=== PATIENT | male | born 1995 | race African-American/Black ===

== ENCOUNTER → 2016-07-21 19:22 | Emergency (ER) | payer OTHER ==
[2016-07-21 19:31] VITALS: BP 132/76
== END | disposition left against medical advice (07) ==
LOC: ED 19:22
DX: Z00.8 Encounter for other general examination (principal); Z53.21 Procedure and treatment not carried out due to patient leaving prior to being seen by health care provider

== ENCOUNTER 2016-07-21 20:05 | Inpatient (IN) | payer OTHER ==
--- NOTE | 2016-07-21 20:41 | ED ---
Psychiatric Complaint - HPI Summary HPI Summary: 21M presents for mental health evaluation. He has not been taking his medication for a couple months. He states he is here before things get worst. He denies any SI/HI. He denies any drug or ETOH use. He was last admitted here many months ago. He states his medication are not helping. He does not know his family history. He states he has a history of depression but is not very forthcoming on his mental history. - History Of Current Complaint Chief Complaint: EDMentalHealth Time Seen by Provider: 07/21/16 20:26 - Allergies/Home Medications Allergies/Adverse Reactions: Allergies Allergy/AdvReac Type Severity Reaction Status Date / Time No Known Allergies Allergy Verified 10/27/15 23:21 PMH/Surg Hx/FS Hx/Imm Hx Endocrine/Hematology History: Denies: Hx Diabetes, Hx Thyroid Disease Cardiovascular History: Denies: Hx Hypertension Respiratory History: Denies: Hx Asthma, Hx Chronic Obstructive Pulmonary Disease (COPD) GI History: Denies: Hx Ulcer Musculoskeletal History: Denies: Hx Rheumatoid Arthritis, Hx Osteoporosis Psychiatric History: Reports: Hx Anxiety, Hx Depression Denies: Hx Eating Disorder - Surgical History Surgery Procedure, Year, and Place: bilateral foot surgery while in high school Infectious Disease History: Denies: Hx Clostridium Difficile, Hx Hepatitis, Hx Human Immunodeficiency Virus (HIV), Hx of Known/Suspected MRSA, Hx Shingles, Hx Tuberculosis, History Other Infectious Disease, Traveled Outside the [place] in Last 30 Days - Family History Known Family History: Positive: Diabetes - Social History Alcohol Use: says has a couple of drinks ETOH every few days Hx Substance Use: No Substance Use Type: Reports: None, Marijuana Hx Tobacco Use: Yes Smoking Status (MU): Current Some Day Smoker Type: Cigars Review of Systems Negative: Fever Negative: Cough Negative: Abdominal Pain Positive: Depressed All Other Systems Reviewed And Are Negative: Yes Physical Exam Triage Information Reviewed: Yes Vital Signs On Initial Exam: Initial Vitals Temp Pulse Resp BP Pulse Ox 97.7 F 102 20 136/84 100 07/21/16 20:19 07/21/16 20:19 07/21/16 20:19 07/21/16 20:19 07/21/16 20:19 Vital Signs Reviewed: Yes Appearance: Positive: Well-Appearing Skin: Positive: Warm, Dry Head/Face: Positive: Normal Head/Face Inspection Eyes: Positive: Normal, Conjunctiva Clear ENT: Positive: Normal ENT inspection, Pharynx normal, TMs normal Respiratory/Lung Sounds: Positive: Clear to Auscultation, Breath Sounds Present Cardiovascular: Positive: Normal, RRR Diagnostics - Vital Signs Vital Signs Temp Pulse Resp BP Pulse Ox 07/21/16 20:19 97.7 F 102 20 136/84 100 - Laboratory Result Diagrams: 07/21/16 21:04 07/21/16 21:04 Lab Statement: Any lab studies that have been ordered have been reviewed, and results considered in the medical decision making process. Course/Dx - Course Course Of Treatment: 21M presents for MHE. has history of depression. denies any SI/HI. patient was anxious that everything was taking a long time to see MHE and requested to leave. there was no reason to keep patient here as came voluntarily and expressed no desire to hurt himself or others. was seen by MHE and felt that needed to be admitted but patient eloped before could be admitted. MHE filled about involuntary admission papers and got the police involved and brought the patient back to be admitted - Differential Dx/Clinical Impression Differential Diagnosis/HQI/PQRI: Positive: Anxiety, Depression, Suicidal Ideation Provider Diagnosis: Persistent mood [affective] disorder, unspecified Discharge - Discharge Plan Condition: Stable Disposition: [place]IATR[place] [place]
[2016-07-21 21:13] LABS: Hematocrit 46 % (42-52); Hemoglobin 15.7 g/dl (14.0-18.0); Mean Corpuscular HGB Conc 34 g/dl (31-36); Mean Corpuscular Hemoglobin 30 pg (27-31); Mean Corpuscular Volume 87 fL (80-94); Mean Platelet Volume 9 um3 (7.4-10.4); Red Blood Count 5.32 10^6/ul (4.0-5.4); Red Cell Distribution Width 13 % (10.5-15); White Blood Count 6.7 10^3/ul (3.5-10.8)
[2016-07-21 21:28] LABS: ALT 21 U/L (7-52); AST 21 U/L (13-39); Albumin 4.8 g/dL (3.2-5.2); Alkaline Phosphatase 44 U/L (34-104); Anion Gap 6 mmol/L (2-11); BUN/Creatinine Ratio 8.2 (8-20); Blood Urea Nitrogen 12 mg/dL (6-24); CO2 Carbon Dioxide 29 mmol/L (22-32); Calcium 9.8 mg/dL (8.6-10.3); Chloride 103 mmol/L (101-111); EGFR African American 76.3 (>60); EGFR Non-African American 59.4 (>60); Globulin 2.9 g/dL (2-4); Glucose 79 mg/dL (70-100); Potassium 3.6 mmol/L (3.5-5.0); Sodium 138 mmol/L (133-145); Total Protein 7.7 g/dL (6.4-8.9)
[2016-07-21 22:08] LABS: Acetaminophen < 15 mcg/mL; Alcohol < 10 mg/dL (<10); Salicylate < 2.50 mg/dL (<30)
[2016-07-22] MEDS ORDERED: diPHENhydraMINE IV* 50 MG/ML 1 ml VIAL (BENADRYL) IM ONE (00:16)
[2016-07-22] MEDS ORDERED: Haloperidol INJ IV/IM* 5 MG/ML AMP IM ONE (00:16)
[2016-07-22] MEDS ORDERED: LORazepam INJ* 2 MG/ML 1 ML VIAL IM ONE (00:16)
[2016-07-22] MEDS ORDERED: Nicotine GUM* 2 MG PO PRN (01:54)
[2016-07-22] MEDS ORDERED: Mouth Piece, Nicotine* 1 EACH CARTRIDGE INH SCH (01:54)
[2016-07-22] MEDS ORDERED: Nicotine Inhaler* 10 MG AMP INH PRN (01:54)
[2016-07-22] MEDS ORDERED: Acetaminophen TAB* 325 MG PO PRN (01:54)
[2016-07-22] MEDS ORDERED: Al Hydrox/Mg Hydrox/Simet LIQ* 30 ML UDC PO PRN (01:54)
[2016-07-22] MEDS ORDERED: OLANzapine TAB* 5 MG PO PRN (01:55)
[2016-07-22] MEDS ORDERED: OLANzapine TAB* 5 MG PO SCH (09:00)
[2016-07-22] MEDS ORDERED: Sertraline* 100 MG TAB PO SCH (09:00)
[2016-07-22] MEDS: Vitamin THERAPEUTIC TAB PO SCH (09:10)
--- NOTE | 2016-07-22 14:29 | ADMNOTE ---
Identification - Identify Employment Status: Unemployed Hx Psychiatric Hospitalization: Yes - 1st inpatient hospitalization 10/[address] [facility]. Arrived to Hospital Via: Ambulatory - Patient walked from [facility] History - Objective HPI: 21yo male patient presents to [facility] ED, having walked from his alf alma, reporting worsening depression, anger, and anxiety associated with assaultive ideations. Patient's last psych admission was to [facility] in 10/2015. He was discharged on Zyprexa and Zoloft. Patient reports med non-compliance reporting he took the meds for ~2 weeks but stopped them due to nausea and vomiting s/e's. On this admission, patient requests med modification and endorses currently feeling "out of control". He reports frequent unmanageable angry when he feels judged or thought of as less than. He reports this anger ppt's AI(assaultive ideations). Patient denies hx of DV(domestic violence ) or assault. Patient hopes to start meds to decrease his thoughts to hurt others. Patient denies SI/HI and denies hx of suicide attempt and hx of self injurious behavior. Patient reports his symptoms began to intensify after being jailed for 1 month associated with an arrest for DWI in 08/2015 and later that month an arrest for fleeing police. Patient reports after the DWI arrest he felt he was being harassed by police, being frequently pulled over. He reported fleeing police during an attempted traffice stop. Patient reports after being released from custodial he became socially withdrawn and went weeks without leaving his home. During his 2015 hospitalization he displayed catatonic features, mutism, staring, being withdrawn and immobile to the point of going days between meals and fluid intake. Patient endorses ongoing depressive symptoms including insomnia, social isolation, irritability, feelings of hopelessness, helplessness, and worthlessness, as well as decreased interests especially in hygeine, poor energy and motivation. Patient also reports episodes where he experiences poor cognition, reporting irrational thinking. Patient points to his walking to the ED instead of getting a ride by EMS, police, or staff. Patient also reports walking off his job of 1 year recently due to anxiety and misinterpreting statements and gestures of co-workers. He endorsed assuming malicious intent without evidence. Patient also identifies losing his apartment, then having to live with his mother, then moving into a living with 14 other guys and worsening his anxiety. Patient reports perseverating / ruminating on every encounter there. Past Psych Hx: Inpt - 2nd, both at [facility]. last 10/2015 Outpt - [facility], sees Dr. Grubbs Psychotropic med hx - patient reports no current med Rx, hx of Zyprexa and Zoloft but self D/C'd due to GI s/e's Suicide attempt Hx SIB Hx: Patient denies hx of suicide attempt and hx of SIB Substance Hx: Patient reports moderate Cannabis and Alcohol use d/o symptoms Trauma Hx: Patient denies hx of childhood physical, emotional, and sexual abuse PMHx: ------ NONE Allergies: --------- NKDA Family Hx: --------- -Patient reports maternal cousin dx with Schizophrenia -Patient reports mom dx with depression -Patient denies family hx of suicide attempt -Patient denies family hx of SERGIO issues Social Hx: -Patient born in [place], [place] -Raised by mom, close -Dad in [facility], close -2 siblings, brothers, close -[employer] - HS diploma -single, never , no children -currently unemployed -Longest held job - 1 year PHYSICAL EXAM: GEN - medium build, in NAD HEENT - Head AT/NC, EOEMI, Uvula midline, conjunctivae clear NECK - supple, no JVD, no LAD CARDIAC - S1/S2, RRR LUNGS - CTA ABDOMEN - soft, non tender, BSx4 MUSCULOSKELETAL - 5/5 muscle strength bilateral upper and lower extremities SKIN - no lesions, intact NEURO - CN 2-12 grossly intact, gait wnl Past Medical History: NONE Lab Results: Laboratory Results - last 24 hr 07/21/16 07/21/16 21:04 21:04 WBC 6.7 RBC 5.32 Hgb 15.7 Hct 46 MCV 87 MCH 30 MCHC 34 RDW 13 Plt Count 212 MPV 9 Neut % (Auto) 66.0 Lymph % (Auto) 25.3 Green % (Auto) 7.8 Eos % (Auto) 0.3 Baso % (Auto) 0.6 Absolute Neuts (auto) 4.5 Absolute Lymphs (auto) 1.7 Absolute Monos (auto) 0.5 Absolute Eos (auto) 0 Absolute Basos (auto) 0 Absolute Nucleated RBC 0.02 Nucleated RBC % 0.3 Sodium 138 Potassium 3.6 Chloride 103 Carbon Dioxide 29 Anion Gap 6 BUN 12 Creatinine 1.47 H Est GFR ( Amer) 76.3 Est GFR (Non-Af Amer) 59.4 BUN/Creatinine Ratio 8.2 Glucose 79 Calcium 9.8 Total Bilirubin 0.70 AST 21 ALT 21 Alkaline Phosphatase 44 Total Protein 7.7 Albumin 4.8 Globulin 2.9 Albumin/Globulin Ratio 1.7 TSH 1.50 Salicylates < 2.50 Acetaminophen < 15 Serum Alcohol < 10 Radiology Results: NONE Exam Grooming: Disheveled Psychomotor Activities: Abnormal-Decreased - bradykinesia, patient is cognitively slowed and is delayed in response Attitude and Relatedness: Withdrawn Eye Contact: Poor - Speech Quality: Unpressured Latencies: Short Quantity: Terse Patient's Decription of Mood: "Anxious" Observed Affect: Depressed Affect Consistent with: Dysphoria Patient's Thought Process: Impoverished Thought Content: Yes Paranoid Ideation - persecutory ideations, No Passive Wish, No Suicidal Planning, No Homicidal Ideation Experiencing Hallucinations: No, Sensorium is Clear Type of Hallucinations: Visual: No, Auditory: No, Command: No Level of Consciousness: Alert Orientation: Yes Intact, Yes Orientated to Time, Yes Orientated to Place, Yes Orientated to Person Impulse Control: Impaired Insight and Judgement: Poor - Additional Observations Comments: Patient denies AH/VH but endorses Assaultive ideations associated with social anxiety/paranoia Impression - Impression Clinical Impression: 21yo male with 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 Patient self presented to [facility] ED walking from his alf reporting worsening concentration/cognition, anxiety and depression. He has been med non-compliant from his first psych hospitalization here at [facility] in 10/2015. He denies SI/HI and AH/VH. Inpatient DSM-IV Dx: 1. MDD w/ PFs. 2. Social anxiety disorder Merits Inpatient Hospitalization: Yes Plan - Treatment Plan Treatment Plan: 1. Admit patient for safety and management of depression with psychosis. 2. Discontinue Zoloft and Zyprexa as patient declines restart due to nausea and vomiting side-effects. 2. Patient amenable to med modification and gives informed consent to start Effexor XR 75mg po daily for anxiety and depressive symptoms and Risperdal 1mg po qhs for psychosis. 3. Patient encourged to participate in groups and engage in activities in the milieu. 4. Continue to gather collateral information. Mom called at #[phone] no answer. Mom called at #[phone], number no longer in service. 5. Will contact patient's MH provider, Dr. Grubbs of [facility]. Continued Medication Management: Different Medication Medications: Current Medications Acetaminophen (Tylenol Tab*) 650 mg PO Q4H PRN PRN Reason: PAIN or TEMP > 101 F Al Hydrox/Mg Hydrox/Simethicone (Maalox Plus*) 30 ml PO Q4H PRN PRN Reason: INDIGESTION Device (Nicotine Mouth Piece*) 1 each INH .CARTRIDGE [facility] Diphenhydramine HCl (Benadryl Po*) 50 mg PO BEDTIME [facility] Multivitamins (Theragran Tab*) 1 tab PO DAILY [facility] Last Admin: 07/22/16 09:10 Dose: 1 tab Nicotine (Nicotine Inhaler*) 10 mg INH Q2H PRN PRN Reason: CRAVING Nicotine Polacrilex (Nicotine Gum*) 2 mg PO Q2H PRN PRN Reason: CRAVING Olanzapine (Zyprexa Tab*) 5 mg PO BID [facility] Last Admin: 07/22/16 11:00 Dose: Not Given Olanzapine (Zyprexa Tab*) 5 mg PO Q6H PRN PRN Reason: PSYCHOSIS/AGITATION Sertraline HCl (Zoloft*) 100 mg PO DAILY [facility] Last Admin: 07/22/16 11:00 Dose: Not Given - Discharge Plan Discharge Plan: Drug/Alcohol Rehab Outpatient Program: [facility]
[2016-07-22] MEDS: Venlafaxine EXT RELEASE CAP* 75 MG PO SCH (15:06)
[2016-07-22] MEDS: diPHENhydraMINE PO* 50 MG PO SCH (21:20)
[2016-07-22] MEDS: risperiDONE TAB* 1 MG PO SCH (21:20)
[2016-07-23] MEDS: Vitamin THERAPEUTIC TAB PO SCH (07:54)
[2016-07-23] MEDS: Venlafaxine EXT RELEASE CAP* 75 MG PO SCH (07:55)
--- NOTE | 2016-07-23 13:38 | PN ---
Subjective - Subjective Service Type: 82740 Hosp care 15 min low complexity Subjective: Patient approached this provider this morning to initiate interview. Patient reports no issues or concerns on the unit. He reports his mood continues to be "anxious ". He is noted by staff to be isolative, withdrawn, but cooperative. Patient reports no episodes of disorganized thought or irrational thought since admission. He is noted to have good sleep and appetite. Patient not observed by staff to be responding to internal stimuli. Patient expresses no paranoia on interview. Pt. encouraged to attend groups. Patient is med compliant and denies med s/e's. Patient denies AI(assaultive ideations) currently. Patient reports no SI/HI and no AH/VH. Patient reports mom will be visiting this evening around 5pm. Objective - Appearance Appearance: Well Developed/Nourished Dysmorphic Features: No Hygiene: Normal Grooming: Fairly Well Kept - Behavior Psychomotor Activities: Abnormal-Decreased Exhibits Abnormal Movement: No - Attitude and Relatedness Attitude and Relatedness: Cooperative Eye Contact: Fair - Speech Quality: Unpressured Latencies: Short Quantity: Terse - Mood Patient's Decription of Mood: "Anxious" - Affect Observed Affect: Depressed Affect Consistent with: Dysphoria - Thought Process Patient's Thought Process: Coherent Thought Content: No Passive Wish, No Suicidal Planning, No Homicidal Ideation, No Paranoid Ideation - Sensorium Experiencing Hallucinations: No, Sensorium is Clear Type of Hallucinations: Visual: No, Auditory: No, Command: No - Level of Consciousness Level of Consciousness: Alert Orientation: Yes Intact, Yes Orientated to Time, Yes Orientated to Place, Yes Orientated to Person - Impulse Control Impulse Control: Impaired - Insight and Judgement Insight and Judgement: Impaired - Group Participation Particating in Group Activities: Yes - Medication Management Medication Management Adherence: Yes Assessment - Assessment Inpatient DSM-IV Dx: 1. MDD w/ PFs. 2. Social anxiety disorder. 3. R/O Schizophrenia Clinical Impression: 21yo male with 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 Patient self presented to [facility] [place] [place] [facility] reporting worsening concentration/cognition, anger with AI, anxiety and depression. He had been med non-compliant from his first psych hospitalization here at [facility] in [place]. Currently on the unit, he is med compliant. Plan - Plan Treatment Plan: 1. Continue admission for safety and management of depression with psychosis. 2. Continue Effexor XR 75mg po daily for anxiety and depressive symptoms and Risperdal 1mg po qhs for psychosis. 3. Patient encourged to participate in groups and engage in activities in the milieu. 4. Mom called at number provided today by patient, #[phone], number no longer in service. Mom called at #[phone] no answer. Mom called at #[phone], number no longer in service. 5. Contacted and left voicemail for return call with patient's MH provider, Dr. Grubbs of [facility]. Continued Medication Management: Different Medication Medications: Current Medications Acetaminophen (Tylenol Tab*) 650 mg PO Q4H PRN PRN Reason: PAIN or TEMP > 101 F Al Hydrox/Mg Hydrox/Simethicone (Maalox Plus*) 30 ml PO Q4H PRN PRN Reason: INDIGESTION Device (Nicotine Mouth Piece*) 1 each INH .CARTRIDGE [facility] Diphenhydramine HCl (Benadryl Po*) 50 mg PO BEDTIME [facility] Last Admin: 07/22/16 21:20 Dose: 50 mg Multivitamins (Theragran Tab*) 1 tab PO DAILY [facility] Last Admin: 07/23/16 07:54 Dose: 1 tab Nicotine (Nicotine Inhaler*) 10 mg INH Q2H PRN PRN Reason: CRAVING Nicotine Polacrilex (Nicotine Gum*) 2 mg PO Q2H PRN PRN Reason: CRAVING Risperidone (Risperdal*) 1 mg PO BEDTIME [facility] Last Admin: 07/22/16 21:20 Dose: 1 mg Venlafaxine HCl (Effexor Xr Cap*) 75 mg PO DAILY [facility] Last Admin: 07/23/16 07:55 Dose: 75 mg - Discharge Plan Discharge Plan: Drug/Alcohol Rehab Outpatient Program: [facility]
[2016-07-23] MEDS: risperiDONE TAB* 1 MG PO SCH (21:35)
[2016-07-23] MEDS: diPHENhydraMINE PO* 50 MG PO SCH (21:36)
[2016-07-24] MEDS: Vitamin THERAPEUTIC TAB PO SCH (08:14)
[2016-07-24] MEDS: Venlafaxine EXT RELEASE CAP* 75 MG PO SCH (08:14)
[2016-07-24] MEDS: risperiDONE TAB* 1 MG PO SCH (22:04)
[2016-07-24] MEDS: diPHENhydraMINE PO* 50 MG PO SCH (22:04)
[2016-07-25] MEDS: Vitamin THERAPEUTIC TAB PO SCH (08:49)
[2016-07-25] MEDS: Venlafaxine EXT RELEASE CAP* 75 MG PO SCH (08:49)
--- NOTE | 2016-07-25 15:44 | PN ---
Subjective - Subjective Service Type: 60186 Hosp care 15 min low complexity Subjective: Sanjay reports that he has been on edge today but unable identify any reason. Not sure if he would become aggressive. Doesn't make any eye contact during the assessment and denies suicidal ideation. Objective - Appearance Appearance: Healthy Appearing Dysmorphic Features: No Hygiene: Normal Grooming: Well Kept - Behavior Psychomotor Activities: Normal Exhibits Abnormal Movement: No - Attitude and Relatedness Attitude and Relatedness: Appropriate Eye Contact: Poor - Speech Quality: Unpressured Latencies: Normal Quantity: Appropriate - Mood Patient's Decription of Mood: "Irritable" - Affect Observed Affect: Constricted - Thought Process Patient's Thought Process: Coherent, Goal Directed Thought Content: No Passive Wish, No Suicidal Planning, No Homicidal Ideation, No Paranoid Ideation - Sensorium Experiencing Hallucinations: No, Sensorium is Clear Type of Hallucinations: Visual: No, Auditory: No, Command: No - Level of Consciousness Level of Consciousness: Alert Orientation: Yes Intact, Yes Orientated to Time, Yes Orientated to Place, Yes Orientated to Person - Impulse Control Impulse Control: Tenuous - Insight and Judgement Insight and Judgement: Poor - Group Participation Particating in Group Activities: Yes - Medication Management Medication Management Adherence: No Assessment - Assessment Merits Inpatient Hospitalization: [facility] Inpatient DSM-IV Dx: 1. MDD w/ PFs. 2. Social anxiety disorder. 3. R/O Schizophrenia Plan - Plan Treatment Plan: Name: SANJAY QUINTERO Birthdate: 1995 [id number] Continued Medication Management: Continue Outpt Medication Medications: Current Medications Acetaminophen (Tylenol Tab*) 650 mg PO Q4H PRN PRN Reason: PAIN or TEMP > 101 F Al Hydrox/Mg Hydrox/Simethicone (Maalox Plus*) 30 ml PO Q4H PRN PRN Reason: INDIGESTION Device (Nicotine Mouth Piece*) 1 each INH .CARTRIDGE [facility] Diphenhydramine HCl (Benadryl Po*) 50 mg PO BEDTIME [facility] Last Admin: 07/24/16 22:04 Dose: 50 mg Multivitamins (Theragran Tab*) 1 tab PO DAILY [facility] Last Admin: 07/25/16 08:49 Dose: 1 tab Nicotine (Nicotine Inhaler*) 10 mg INH Q2H PRN PRN Reason: CRAVING Nicotine Polacrilex (Nicotine Gum*) 2 mg PO Q2H PRN PRN Reason: CRAVING Risperidone (Risperdal*) 1 mg PO BEDTIME [facility] Last Admin: 07/24/16 22:04 Dose: 1 mg Venlafaxine HCl (Effexor Xr Cap*) 150 mg PO DAILY [facility] Last Admin: 07/25/16 08:49 Dose: 150 mg - Discharge Plan Discharge Plan: Outpatient Follow Up Outpatient Program: [facility]
[2016-07-25] MEDS: risperiDONE TAB* 2 MG PO SCH ×2 (17:49→21:46)
[2016-07-25] MEDS: diPHENhydraMINE PO* 50 MG PO SCH (21:46)
[2016-07-26 07:44] VITALS: BP 139/81
[2016-07-26] MEDS: Vitamin THERAPEUTIC TAB PO SCH (08:53)
[2016-07-26] MEDS: Venlafaxine EXT RELEASE CAP* 75 MG PO SCH (08:53)
[2016-07-26] MEDS ORDERED: Venlafaxine EXT RELEASE CAP* 75 MG PO SCH (12:20)
--- NOTE | 2016-07-26 12:21 | PN ---
Subjective - Subjective Subjective: Patient affect brighter and more expressive, noticeably more engaged in interview than when last seen. Patient reported episode of anxiety attack over the weekend. Patient unable to express what triggered the anxiety. Patient Risperdal increased from 1mg to 2mg last night. Patient reports no med s/e's. KERR offered to patient, but was declined. Patient has been med non-compliant at [facility] and reports this was 2/2 to GI and sedation s/e's. Patient is tolerating and is compliant with Effexor and Risperdal and reports understanding of importance of med compliance for symptom management. Patient reports his mood as "I'm feeling alright". Patient reports fair sleep and appetite. He reports improved mood and anxiety from the weekend. He denies SI/HI and AH/ VH. Per discussion with mom (Mrs. Pinzon#[phone]) patient symptoms began, she noticed, 7 months ago at the time of the of her sister, patient's aunt. She reports they were very close and she suddenly of cancer. She reports patient then displayed features of catatonia:withdrawn behavior, mutism-going 3 months without talking, stupor with no motivation to seek food or water for days. Mom also points to patient's DUI(alcohol) arrest and the subsequent [facility] he spent [facility] as a trigger. Mom reports patient did not leave the home for months after his release from [facility] 6 months ago. Around this time, mom reports patient began to not attend to his hygeine nor could he maintain making/attending medical appts. Mom also reports patient began expressing paranoid ideations of being set up to be hurt. Staff at [place] reported patient's med non-compliance. Staff also reported patient's behavior of staring off into space for hours at a time. Staff reported patient will get so anxious that he will leave the waiting room at doctor's offices, reporting he gets so anxious he has to leave. Patient does not express bizarre paranoid ideations to staff. Patient not noted to be responding to internal stimuli. Staff nor mom report patient reporting hallucinations. Objective - Appearance Appearance: Well Developed/Nourished Dysmorphic Features: No Hygiene: Normal Grooming: Fairly Well Kept - Behavior Psychomotor Activities: Normal Exhibits Abnormal Movement: No - Attitude and Relatedness Attitude and Relatedness: Cooperative Eye Contact: Fair - Speech Quality: Unpressured Latencies: Normal Quantity: Appropriate - Mood Patient's Decription of Mood: "alright" - Thought Process Patient's Thought Process: Coherent Thought Content: No Passive Wish, No Suicidal Planning, No Homicidal Ideation, No Paranoid Ideation - Sensorium Experiencing Hallucinations: No, Sensorium is Clear Type of Hallucinations: Visual: No, Auditory: No, Command: No - Level of Consciousness Level of Consciousness: Alert Orientation: Yes Intact, Yes Orientated to Time, Yes Orientated to Place, Yes Orientated to Person - Impulse Control Impulse Control: Intact - Insight and Judgement Insight and Judgement: Fair - Group Participation Particating in Group Activities: Yes - Medication Management Medication Management Adherence: Yes - Additional Observations Comments: Patient denies AH/VH but endorses Assaultive ideations associated with social anxiety/paranoia Assessment - Assessment Merits Inpatient Hospitalization: For Stabilization 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 2. Social anxiety disorder. 3. R/O Schizophrenia Clinical Impression: 21yo male with 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 Patient self presented to [facility] walking [facility] his [facility] reporting worsening concentration/cognition, anger with AI, episodes of disorganized TP and disorientation, anxiety and depression. He had been med non-compliant from his first psych hospitalization here at [facility] in 10/2015. Currently on the unit, he is med compliant. Plan - Plan Treatment Plan: 1. Estimated discharge tomorrow. Continue admission for monitoring of patient on uptitrated doses of Risperdal and Effexor XR. 2. Increase Effexor XR from 75mg to 225mg po daily for anxiety and depressive symptoms. 3. Increase Risperdal from 2mg po to 3mg po qhs for psychotic features 4. Spoke with mom(Mrs. Pinzon#[phone] who gave collateral info on patient and reports she has seen progress in symptoms and feels comfortable with patient discharging tomorrow. 5. Patient to discharge in tomorrow am ~10am and mom will transport patient to [facility] for already scheduled appt with counselor for 11am. 6. Patient encourged to participate in groups and engage in activities in the milieu. 7. Spoke with patient's provider, Dr. Grubbs of [facility] who reports patient's Dx in her clinic is also MDD w/psychotic features and Catatonia rule out Schizophrenia. Medications: Current Medications Acetaminophen (Tylenol Tab*) 650 mg PO Q4H PRN PRN Reason: PAIN or TEMP > 101 F Al Hydrox/Mg Hydrox/Simethicone (Maalox Plus*) 30 ml PO Q4H PRN PRN Reason: INDIGESTION Device (Nicotine Mouth Piece*) 1 each INH .CARTRIDGE HERNANDEZ Diphenhydramine HCl (Benadryl Po*) 50 mg PO BEDTIME HERNANDEZ Last Admin: 07/25/16 21:46 Dose: 50 mg Multivitamins (Theragran Tab*) 1 tab PO DAILY HERNANDEZ Last Admin: 07/26/16 08:53 Dose: 1 tab Nicotine (Nicotine Inhaler*) 10 mg INH Q2H PRN PRN Reason: CRAVING Nicotine Polacrilex (Nicotine Gum*) 2 mg PO Q2H PRN PRN Reason: CRAVING Risperidone (Risperdal*) 2 mg PO BEDTIME HERNANDEZ Last Admin: 07/25/16 21:46 Dose: 2 mg Venlafaxine HCl (Effexor Xr Cap*) 150 mg PO DAILY HERNANDEZ Last Admin: 07/26/16 08:53 Dose: 150 mg
[2016-07-26] MEDS ORDERED: risperiDONE TAB* 3 MG PO SCH (21:00)
[2016-07-26] MEDS: diPHENhydraMINE PO* 50 MG PO SCH (21:21)
[2016-07-27] MEDS: Vitamin THERAPEUTIC TAB PO SCH (09:04)
--- NOTE | 2016-07-27 20:24 | DCNOTE ---
Subjective - Subjective Service Types: 84747 Hosp MD Day Mgmt simple under 30 min Subjective: Hospital Course: 21yo male patient presented to [facility], having walked from his detention [facility], reporting worsening depression, anger, and anxiety associated with assaultive ideations. Patient's last psych admission was to [facility] in 10/2015. He was discharged on Zyprexa and Zoloft. Patient reports med non-compliance due to GI and sedation s/e's. During his 10/2015 hospitalization he displayed catatonic features, mutism, staring, being withdrawn and immobile to the point of going days between meals and fluid intake. On this admission patient endorsed ongoing depressive symptoms including insomnia, social isolation, irritability, feelings of hopelessness, helplessness , and worthlessness, as well as decreased interests especially in hygeine, poor energy and motivation. Patient also reports episodes where he experiences poor cognition, reporting "irrational" thinking. [facility] staff report patient has not reported episodes of halluciations, nor has he been observed responding to internal stimuli. Paitent reportedly has hx of paranoid ideations. Patient denied SI/HI and denies hx of suicide attempt and hx of self injurious behavior. Patient was amenable to psychotropic med initiation due to concerns with increasing anger and assaultive ideations(AI) and fear he may hurt someone. Patient started on Risperdal 1mg po qhs for psychotic features and started on Effexor XR 75mg po qam for anxiety and depressive symptoms. Patient tolerated meds and denied med s/e's through course of admission. Patient's Effexor dose increased to 150mg prior to the weekend, then to 225mg prior to discharge. Patient's Risperdal dose uptitrated to 2mg prior to the weekend and then to 3mg po qhs prior to discharge. Patient reported benefit to mood and anxiety. He was noted to have more engaged affect and manner daily through admission. On day of discharge, patient felt comfortable with discharge back to [facility]. Patient reported understanding the importance of med compliance in managing his symptoms. Staff from [facility] present to transport patient back to [facility] residence. Patient was psychiatrically stable, denying SI/HI/AI and AH/VH. Pertinent Labs: Unremarkable Consultants: None Discharge Meds: Multivitamins 1 tab PO DAILY [facility] Risperidone (Risperdal*) 3 mg PO BEDTIME HERNANDEZ Venlafaxine HCl (Effexor Xr Cap*) 225 mg PO DAILY [facility] Follow-up Appts: 1. [facility], appt to see Dr. Grubbs to be scheduled for within 2 weeks 2. Patient to report for Drug and alcohol evaluation at [facility] within 2 weeks Objective - Appearance Appearance: Well Developed/Nourished Dysmorphic Features: No Hygiene: Normal Grooming: Fairly Well Kept - Behavior Psychomotor Activities: Normal Exhibits Abnormal Movement: No - Attitude and Relatedness Attitude and Relatedness: Cooperative Eye Contact: Good - Speech Quality: Unpressured Latencies: Normal Quantity: Appropriate - Mood Patient's Decription of Mood: "Fine" - Affect Observed Affect: Fair Affect Consistent with: Euthymia - Thought Process Patient's Thought Process: Coherent Thought Content: No Passive Wish, No Suicidal Planning, No Homicidal Ideation, No Paranoid Ideation - Sensorium Experiencing Hallucinations: No, Sensorium is Clear Type of Hallucinations: Visual: No, Auditory: No, Command: No - Level of Consciousness Level of Consciousness: Alert Orientation: Yes Intact, Yes Orientated to Time, Yes Orientated to Place, Yes Orientated to Person - Impulse Control Impulse Control: Intact - Insight and Judgement Insight and Judgement: Good - Group Participation Particating in Group Activities: Yes - Medication Management Medication Management Adherence: Yes - Additional Observations Comments: Patient denies AH/VH but endorses Assaultive ideations associated with social anxiety/paranoia DC Assessment - Assessment Clinical Impression: 21yo male with PPHx significant for MDD with catatonic/psychotic features. Patient self presented to [facility] ED walking from his detention reporting worsening concentration/cognition, anger with AI, anxiety and depression. He had hx of med non-compliance due to s/e's but has been med compliant through admission with reported med benefit. 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 2. Social anxiety disorder. 3. R/O Schizophrenia Discharge Planning - Discharge Planning Discharge Plan: Outpatient Follow Up Outpatient [facility] Recommendations for Continuing Care: Substance Abuse Counseling Discharge Planning: Prescriptions provided for discharge [x] Yes [] No Follow up care details as per social work arrangements. Patient response to discharge plan: [] eager for discharge [x] agreeable with discharge plan [] ambivalent about discharge [] disagrees with discharge today
== END 2016-07-27 12:16 | disposition home or self-care (01) | DRG 751 ==
LOC: ED 20:05 → BSU 07-22 01:00
PROVIDERS: ADMIT Psychiatry & Neurology Psychiatry; ATTEND Psychiatry & Neurology Psychiatry
DX: F32.3 Major depressive disorder, single episode, severe with psychotic features (principal); F20.9 Schizophrenia, unspecified; F41.9 Anxiety disorder, unspecified; F12.90 Cannabis use, unspecified, uncomplicated; F17.210 Nicotine dependence, cigarettes, uncomplicated; F41.8 Other specified anxiety disorders; Z56.0 Unemployment, unspecified; Z72.89 Other problems related to lifestyle; Z81.8 Family history of other mental and behavioral disorders; Z91.14 Patient's other noncompliance with medication regimen; Z83.3 Family history of diabetes mellitus
CPT/HCPCS: 36415; 80053; 80320; 80329; 84443; 85025; 99222; 99231; 99238; A9270-GY; G0480

== ENCOUNTER 2016-08-17 03:07 | Inpatient (IN) | payer OTHER ==
[2016-08-17] MEDS ORDERED: Haloperidol INJ IV/IM* 5 MG/ML AMP ONE (03:20)
[2016-08-17] MEDS ORDERED: diPHENhydraMINE IV* 50 MG/ML 1 ml VIAL (BENADRYL) ONE (03:20)
[2016-08-17] MEDS ORDERED: LORazepam INJ* 2 MG/ML 1 ML VIAL ONE (03:20)
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
[2016-08-17 06:23] LABS: Hematocrit 50 % (42-52); Hemoglobin 16.9 g/dl (14.0-18.0); Mean Corpuscular HGB Conc 34 g/dl (31-36); Mean Corpuscular Hemoglobin 30 pg (27-31); Mean Corpuscular Volume 89 fL (80-94); Mean Platelet Volume 8 um3 (7.4-10.4); Red Blood Count 5.59 10^6/ul (4.0-5.4); Red Cell Distribution Width 13 % (10.5-15); White Blood Count 5.9 10^3/ul (3.5-10.8)
[2016-08-17 06:36] LABS: ALT 27 U/L (7-52); AST 38 U/L (13-39); Albumin 4.9 g/dL (3.2-5.2); Alkaline Phosphatase 50 U/L (34-104); Anion Gap 6 mmol/L (2-11); BUN/Creatinine Ratio 8.9 (8-20); Blood Urea Nitrogen 10 mg/dL (6-24); CO2 Carbon Dioxide 28 mmol/L (22-32); Calcium 9.8 mg/dL (8.6-10.3); Chloride 103 mmol/L (101-111); EGFR African American 104.5 (>60); EGFR Non-African American 81.2 (>60); Globulin 3.2 g/dL (2-4); Glucose 91 mg/dL (70-100); Potassium 3.5 mmol/L (3.5-5.0); Sodium 137 mmol/L (133-145); Total Protein 8.1 g/dL (6.4-8.9)
[2016-08-17 07:00] LABS: Acetaminophen < 15 mcg/mL; Alcohol 113 mg/dL (<10); Salicylate < 2.50 mg/dL (<30)
[2016-08-17 07:10] LABS: TSH (Thyroid Stimulating Horm) 1.74 mcIU/mL (0.34-5.60)
[2016-08-17 08:34] LABS: Urine Bacteria Absent (Absent); Urine Bilirubin Negative (Negative); Urine Glucose Negative (Negative); Urine Nitrite Negative (Negative)
[2016-08-17 08:39] LABS: Benzodiazepine Urine Screen None Detected (None Detect)
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
[2016-08-18] MEDS ORDERED: Mouth Piece, Nicotine* 1 EACH CARTRIDGE INH ONE (11:00)
[2016-08-18] MEDS ORDERED: Prenatal Vitamin TAB PO SCH (11:00)
--- NOTE | 2016-08-18 12:13 | RAD ---
INDICATION: Psychosis workup. Initial imaging evaluation. COMPARISON: None TECHNIQUE: Noncontrast axial source images were acquired from the skull base to the vertex. FINDINGS: Ventricles/sulci: The ventricles and cisterns are normal in size and configuration for age. Brain parenchyma: There is no focal parenchymal finding, evidence of intracranial mass, or intracranial mass effect. Intracranial hemorrhage:None. Extra-axial spaces: There are no abnormal extra axial fluid collections or evidence of extra-axial mass. Calvarium: There is no calvarial fracture or other calvarial abnormality. Scalp: There is no evidence of scalp or extracalvarial soft tissue abnormality. Paranasal sinuses/mastoid: The paranasal sinuses and mastoid air cells are clear. Other: None. IMPRESSION: NEGATIVE EXAMINATION
[2016-08-18] MEDS: Vitamin THERAPEUTIC TAB PO SCH (12:35)
[2016-08-18] MEDS: Venlafaxine EXT RELEASE CAP* 75 MG PO SCH (12:35)
[2016-08-18] MEDS: Nicotine Inhaler* 10 MG AMP INH PRN ×2 (12:37→20:05)
[2016-08-18] MEDS: risperiDONE TAB* 3 MG PO SCH (21:17)
[2016-08-18] MEDS: risperiDONE TAB* 2 MG PO SCH (21:17)
[2016-08-19] MEDS: Venlafaxine EXT RELEASE CAP* 75 MG PO SCH (08:10)
[2016-08-19] MEDS: Vitamin THERAPEUTIC TAB PO SCH (08:11)
[2016-08-19] MEDS: Nicotine Inhaler* 10 MG AMP INH PRN ×4 (13:37→21:17)
--- NOTE | 2016-08-19 14:03 | PN ---
Subjective - Subjective Service Type: 97084 Hosp care 25 min moderate complexity Subjective: Patient initiates interview this morning. Patient continues to be full in affect and more interactive / social on the unit vs his last presentation. He is focused on discharge home. Patient reports his mother has allowed him to discharge to his home, but per conversation with mom, patient can not come to live there as she has a 5yo there and is concerned with patient's poor judgment and odd behavior. Patient reports compliance with meds. He denies med s/e on increased Risperdal dose of 5mg qhs. Patient continues to show no insight into his MH issues. He continues to minimize his action that night and does not see that his actions jeopardized the safety of peers and staff at [facility]. He denies SI/HI and denies AH/VH. Objective - Appearance Appearance: Well Developed/Nourished Dysmorphic Features: No Hygiene: Normal Grooming: Fairly Well Kept - Behavior Psychomotor Activities: Normal Exhibits Abnormal Movement: No - Attitude and Relatedness Attitude and Relatedness: Cooperative Eye Contact: Fair - Speech Quality: Unpressured Latencies: Normal Quantity: Appropriate - Mood Patient's Decription of Mood: "Irritable" - Affect Observed Affect: Tense Affect Consistent with: Dysphoria - Thought Process Patient's Thought Process: Tangential Thought Content: No Passive Wish, No Suicidal Planning, No Homicidal Ideation, No Paranoid Ideation - Sensorium Experiencing Hallucinations: No, Sensorium is Clear Type of Hallucinations: Visual: No, Auditory: No, Command: No - Level of Consciousness Level of Consciousness: Alert Orientation: Yes Intact, Yes Orientated to Time, Yes Orientated to Place, Yes Orientated to Person - Impulse Control Impulse Control: Intact - Insight and Judgement Insight and Judgement: Fair - Group Participation Particating in Group Activities: No - Medication Management Medication Management Adherence: Yes Assessment - Assessment Merits Inpatient Hospitalization: For Immediate Safety, For Stabilization Inpatient DSM-IV Dx: 1. Schizophrenia. 2. Alcohol use d/o. 3. Cannabis use d/o Plan - Plan Treatment Plan: Name: RODOLFO BABB LEON Birthdate: 1995 [id number] PLAN: ------ 1. Continue admission to [facility] for safety and symptom mx. 2. First episode psychosis workup: CT head-wnl, TSH-wnl....RPR & HIV-PENDING. 3. Continue Risperdal 5mg po qhs for psychosis/agitation. 4. Continue Effexor XR 225mg po daily for anxiety and mood. 5. Additional collateral information gained from [facility] staff Zacarias(#[phone]). 6. Patient gave consent and collateral information was obtained from [facility] coordinator Kayleigh(#[phone]). 7. Patient gave consent and collateral information was obtained from Mom, Mrs.Vermel Pinzon(#[phone]). 8. working to start ACT team involved in patient's care. Patient is homeless and has DSS sanctions 2/2 not getting required ADC evaluation done and not presenting for other MH appts. 9. Patient to participate in milieu activities and groups. Medications: Current Medications Multivitamins (Theragran Tab*) 1 tab PO DAILY [facility] Last Admin: 08/19/16 08:11 Dose: 1 tab Nicotine (Nicotine Inhaler*) 10 mg INH Q2H PRN PRN Reason: CRAVING Last Admin: 08/19/16 13:37 Dose: 10 mg Risperidone (Risperdal*) 3 mg PO BEDTIME [facility] Last Admin: 08/18/16 21:17 Dose: 3 mg Risperidone (Risperdal*) 2 mg PO BEDTIME [facility] Last Admin: 08/18/16 21:17 Dose: 2 mg Venlafaxine HCl (Effexor Xr Cap*) 225 mg PO DAILY [facility] Last Admin: 08/19/16 08:10 Dose: 225 mg - Discharge Plan Discharge Plan: Drug[facility]Alcohol Rehab [facility]
[2016-08-19] MEDS: risperiDONE TAB* 2 MG PO SCH (21:17)
[2016-08-19] MEDS: risperiDONE TAB* 3 MG PO SCH (21:17)
[2016-08-20] MEDS: Nicotine Inhaler* 10 MG AMP INH PRN ×4 (07:35→17:14)
[2016-08-20] MEDS: Vitamin THERAPEUTIC TAB PO SCH (08:49)
[2016-08-20] MEDS: Venlafaxine EXT RELEASE CAP* 75 MG PO SCH (08:49)
[2016-08-20 09:20] LABS: Rapid HIV INT CONT QC Line Present
[2016-08-20 09:21] LABS: Manual Entry Verification GRE0060; Rapid HIV Kit Lot# F336002
--- NOTE | 2016-08-20 10:39 | PN ---
Subjective - Subjective Service Type: 87118 Hosp care 15 min low complexity Subjective: Patient approaches this provider to initiate interview. Patient has been superficially bright in affect and is focused on discharge. Patient reports he has spoken with his mother again and she now will allow him to discharge to her home. Patient had been told in yesterday's meeting by mom that there were concerns about safety of the 5yo child who also lives in the home. Per discussion with mom today, patient was not told this. Patient continues to lack insight and lack reality based associations. He will not or can not connect his bizarre behaviors with the concerns for his safety. Patient has been med compliant. He reports no med s/e's. He is amenable to weekend observation. He denies SI/HI and AH/VH. Sleep and appetite are wnl. Objective - Appearance Appearance: Well Developed/Nourished Dysmorphic Features: No Hygiene: Normal Grooming: Fairly Well Kept - Behavior Psychomotor Activities: Normal Exhibits Abnormal Movement: Yes - Attitude and Relatedness Attitude and Relatedness: Cooperative Eye Contact: Fair - Speech Quality: Unpressured Latencies: Normal Quantity: Copious - Mood Patient's Decription of Mood: "Fine" - Affect Observed Affect: Tense Affect Consistent with: Dysphoria - Thought Process Patient's Thought Process: Goal Directed, Loose Associations Thought Content: No Passive Wish, No Suicidal Planning, No Homicidal Ideation, No Paranoid Ideation - Sensorium Experiencing Hallucinations: No, Sensorium is Clear Type of Hallucinations: Visual: No, Auditory: No, Command: No - Level of Consciousness Level of Consciousness: Alert Orientation: Yes Intact, Yes Orientated to Time, Yes Orientated to Place, Yes Orientated to Person - Impulse Control Impulse Control: Impaired - Insight and Judgement Insight and Judgement: Poor - Group Participation Particating in Group Activities: Yes - Medication Management Medication Management Adherence: Yes Assessment - Assessment Merits Inpatient Hospitalization: For Immediate Safety, For Stabilization Inpatient DSM-IV Dx: 1. Schizophrenia. 2. Alcohol use d/o. 3. Cannabis use d/o Clinical Impression: 21yo male with PPHx significant for Schizophrenia presents from [facility] Patient noted by staff and by his mother to recently display more bizarre behavior and express odd rationale for the behavior, unable to understand why they were inappropriate. Patient continues to lack insight and lack reality based associations. Patient amenable to increase in his Risperdal dose. He has been med compliant. Plan - Plan Treatment Plan: Name: RODOLFO QUINTERO Birthdate: 1995 [id number] PLAN: ------ 1. Continue admission [facility] for safety and symptom mx. 2. First episode psychosis workup: CT head-wnl, TSH-wnl & HIV-NEG. 3. Increase Risperdal from 5 to 6mg po qhs for psychosis/agitation. 4. Continue Effexor XR 225mg po daily for anxiety and mood. 5. Additional collateral information gained from [facility] staff Zacarias(#[phone]). 6. Patient gave consent and collateral information was obtained from [facility] coordinator Kayleigh(#[phone]). 7. Patient gave consent and collateral information was obtained from Mom, Mrs.Vermel Pinzon(#[phone]). 8. working to [place] ACT team involved in patient's care. Patient is homeless and has DSS sanctions 2/2 not getting required ADC evaluation done and not presenting for other MH appts. 9. Patient to participate in milieu activities and groups. Medications: Current Medications Multivitamins (Theragran Tab*) 1 tab PO DAILY [facility] Last Admin: 08/20/16 08:49 Dose: 1 tab Nicotine (Nicotine Inhaler*) 10 mg INH Q2H PRN PRN Reason: CRAVING Last Admin: 08/20/16 07:35 Dose: 10 mg Risperidone (Risperdal*) 3 mg PO BEDTIME [facility] Last Admin: 08/19/16 21:17 Dose: 3 mg Risperidone (Risperdal*) 2 mg PO BEDTIME [facility] Last Admin: 08/19/16 21:17 Dose: 2 mg Venlafaxine HCl (Effexor Xr Cap*) 225 mg PO DAILY [facility] Last Admin: 08/20/16 08:49 Dose: 225 mg - Discharge Plan Discharge Plan: Drug/Alcohol Rehab Outpatient Program: [facility]
[2016-08-20] MEDS: risperiDONE TAB* 3 MG PO SCH ×2 (20:19→21:21)
[2016-08-21] MEDS: Nicotine Inhaler* 10 MG AMP INH PRN ×4 (06:52→21:38)
[2016-08-21] MEDS: Vitamin THERAPEUTIC TAB PO SCH (08:28)
[2016-08-21] MEDS: Venlafaxine EXT RELEASE CAP* 75 MG PO SCH (08:28)
[2016-08-21] MEDS: risperiDONE TAB* 3 MG PO SCH (20:42)
[2016-08-22] MEDS: Venlafaxine EXT RELEASE CAP* 75 MG PO SCH (08:25)
[2016-08-22] MEDS: Vitamin THERAPEUTIC TAB PO SCH (08:26)
[2016-08-22] MEDS: Nicotine Inhaler* 10 MG AMP INH PRN (12:22)
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
[2016-08-22] MEDS: risperiDONE TAB* 3 MG PO SCH (21:08)
[2016-08-23] MEDS: Nicotine Inhaler* 10 MG AMP INH PRN (04:34)
[2016-08-23 08:05] VITALS: BP 154/78
[2016-08-23] MEDS: Venlafaxine EXT RELEASE CAP* 75 MG PO SCH (08:25)
[2016-08-23] MEDS: Vitamin THERAPEUTIC TAB PO SCH (08:25)
--- NOTE | 2016-08-23 11:17 | DS ---
Subjective - Subjective Service Types: 59175 Hosp MS Day Mgmt simple under 30 min Subjective: Patient noted to be less irritable and less easily agitated over the weekend. He has attended some groups. Patient has been med compliant and he denies med s/e's from higher dose Risperdal. He has not been noted to be responding to internal stimuli or acting/speaking in a bizarre manner. Patient is focused on discharge. He reports he his aunt Shayla will allow patient to stay in her home. She lives with teen aged kids.Per conversation with patient's mother, Shayla and she believe this would be a good fit as she and her older children will be able to better monitor patient for signs of med non-complianc symptom decompensation. Patient reports no SI/HI and denies AH/VH. Sleep and appetite have been wnl. Objective - Appearance Appearance: Well Developed/Nourished Dysmorphic Features: No Hygiene: Normal Grooming: Fairly Well Kept - Behavior Psychomotor Activities: Normal Exhibits Abnormal Movement: No - Attitude and Relatedness Attitude and Relatedness: Cooperative Eye Contact: Good - Speech Quality: Unpressured Latencies: Normal Quantity: Appropriate - Mood Patient's Decription of Mood: "Fine" - Affect Observed Affect: Good Affect Consistent with: Euthymia - Thought Process Patient's Thought Process: Coherent Thought Content: No Passive Wish, No Suicidal Planning, No Homicidal Ideation, No Paranoid Ideation - Sensorium Experiencing Hallucinations: No, Sensorium is Clear Type of Hallucinations: Visual: No, Auditory: No, Command: No - Level of Consciousness Level of Consciousness: Alert Orientation: Yes Intact, Yes Orientated to Time, Yes Orientated to Place, Yes Orientated to Person - Impulse Control Impulse Control: Intact - Insight and Judgement Insight and Judgement: Fair - Group Participation Particating in Group Activities: Yes - Medication Management Medication Management Adherence: Yes Treatment Course & Assessment Clinical Course & Impression: HOSPITAL COURSE: 21yo male with PPHx significant for Schizophrenia presents from [facility] Patient noted by staff and by his mother to recently display more bizarre behavior and express odd rationale for the behavior, unable to understand why they were inappropriate. Patient also expressing more paranoid ideations and displaying easy irritability and agitation. Patient noted by his [facility] staff to be non-compliant with Risperdal 3mg po. Patient admitted for symptom mx. Patient offered and declined recommended KERR Risperdal for better med compliance. PO Risperdal was initially increased from 3mg to 5mg po qhs. His he tolerated the increase well. Patient continued to display easy irritability and agitation. He also continued to express paranoia and MYCHAL. Patient dose increased from 5mg to 6mg prior to the weekend. Patient noted to be less irritable and less easily agitated over the weekend. He has attended some groups. Patient has been med compliant and he denies med s/ e's from higher dose Risperdal. He had not been noted to be responding to internal stimuli or acting/speaking in a bizarre manner. On day of discharge, patient is focused on discharge. He reports he his aunt Shayla will allow patient to stay in her home. She lives with teen aged kids. Per conversation with patient's mother, Shayla and she believe this would be a good fit as she and her older children will be able to better monitor patient for signs of med non-complianc symptom decompensation. Patient reports no SI/HI and denies AH/VH. Sleep and appetite have been wnl. Patient is psychiatrically stable on meds and will be discharged to his aunt Shayla's home, transported by his mother. PERTINENT LABS: Lipid Panel Laboratory Tests 08/17/16 08/17/16 08/17/16 06:14 06:14 08:03 WBC 5.9 RBC 5.59 H Hgb 16.9 Hct 50 MCV 89 MCH 30 MCHC 34 RDW 13 Plt Count 253 MPV 8 Neut % (Auto) 57.7 Lymph % (Auto) 31.2 Calvert % (Auto) 9.5 H Eos % (Auto) 0.8 Baso % (Auto) 0.8 Absolute Neuts (auto) 3.4 Absolute Lymphs (auto) 1.8 Absolute Monos (auto) 0.6 Absolute Eos (auto) 0 Absolute Basos (auto) 0 Absolute Nucleated RBC 0.01 Nucleated RBC % 0.1 Sodium 137 Potassium 3.5 Chloride 103 Carbon Dioxide 28 Anion Gap 6 BUN 10 Creatinine 1.12 Est GFR ( Amer) 104.5 Est GFR (Non-Af Amer) 81.2 BUN/Creatinine Ratio 8.9 Glucose 91 Calcium 9.8 Total Bilirubin 0.50 AST 38 ALT 27 Alkaline Phosphatase 50 Total Protein 8.1 Albumin 4.9 Globulin 3.2 Albumin/Globulin Ratio 1.5 TSH 1.74 Urine Color Yellow Urine Appearance Clear Urine pH 5.0 Ur Specific Cary 1.029 Urine Protein 1+(30 mg/dl) H Urine Ketones Negative Urine Blood Negative Urine Nitrate Negative Urine Bilirubin Negative Urine Urobilinogen Negative Ur Leukocyte Esterase Negative Urine WBC (Auto) Absent Urine RBC (Auto) Absent Urine Bacteria Absent Urine Glucose Negative Urine Ascorbic Acid * H Salicylates < 2.50 Urine Opiates Screen Acetaminophen < 15 Ur Barbiturates Screen Ur Phencyclidine Scrn Ur Amphetamines Screen U Benzodiazepines Scrn Urine Cocaine Screen U Cannabinoids Screen Serum Alcohol 113 H HIV 1&2 Antibody Rapid 08/17/16 08/20/16 08/20/16 08:03 08:16 08:16 WBC RBC Hgb Hct MCV MCH MCHC RDW Plt Count MPV Neut % (Auto) Lymph % (Auto) Calvert % (Auto) Eos % (Auto) Baso % (Auto) Absolute Neuts (auto) Absolute Lymphs (auto) Absolute Monos (auto) Absolute Eos (auto) Absolute Basos (auto) Absolute Nucleated RBC Nucleated RBC % Sodium Potassium Chloride Carbon Dioxide Anion Gap BUN Creatinine Est GFR ( Amer) Est GFR (Non-Af Amer) BUN/Creatinine Ratio Glucose Calcium Total Bilirubin AST ALT Alkaline Phosphatase Total Protein Albumin Globulin Albumin/Globulin Ratio TSH 2.43 Urine Color Urine Appearance Urine pH Ur Specific Cary Urine Protein Urine Ketones Urine Blood Urine Nitrate Urine Bilirubin Urine Urobilinogen Ur Leukocyte Esterase Urine WBC (Auto) Urine RBC (Auto) Urine Bacteria Urine Glucose Urine Ascorbic Acid Salicylates Urine Opiates Screen None detected Acetaminophen Ur Barbiturates Screen None detected Ur Phencyclidine Scrn None detected Ur Amphetamines Screen None detected U Benzodiazepines Scrn None detected Urine Cocaine Screen None detected U Cannabinoids Screen Presumptive positive H Serum Alcohol HIV 1&2 Antibody Rapid Nonreactive Discharge Meds: Home Medications Medication Instructions Recorded Confirmed Type Multiple Vitamin [Multi Vitamin] 1 tab PO DAILY 08/17/16 08/17/16 History Venlafaxine EXT RELEASE CAP* 225 mg PO DAILY #90 cap.sr 08/23/16 Rx [Effexor Xr CAP*] risperiDONE TAB* [Risperdal*] 6 mg PO BEDTIME #60 tab 08/23/16 Rx Consultants: none Follow-Up: Appts for within the next 2 weeks scheduled by for PCP and [facility](psychiatry and ADC). Clear for Discharge: Adequate Clinical Respons, Acceptable Safety Profile Inpatient DSM-IV Dx: 1. Schizophrenia. 2. Alcohol use d/o. 3. Cannabis use d/o Discharge Planning - Discharge Planning Discharge Plan: Outpatient Follow Up [facility] Recommendations for Continuing Care: Substance Abuse Counseling Medications: Current Medications Multivitamins (Theragran Tab*) 1 tab PO DAILY [facility] Last Admin: 08/23/16 08:25 Dose: 1 tab Nicotine (Nicotine Inhaler*) 10 mg INH Q2H PRN PRN Reason: CRAVING Last Admin: 08/23/16 04:34 Dose: 10 mg Risperidone (Risperdal*) 6 mg PO BEDTIME [facility] Last Admin: 08/22/16 21:08 Dose: 6 mg Venlafaxine HCl (Effexor Xr Cap*) 225 mg PO DAILY [facility] Last Admin: 08/23/16 08:25 Dose: 225 mg Discharge Planning: Prescriptions provided for discharge [x] Yes [] No Follow up care details as per social work arrangements. Patient response to discharge plan: [] eager for discharge [x] agreeable with discharge plan [] ambivalent about discharge [] disagrees with discharge today
== END 2016-08-23 14:10 | disposition home or self-care (01) | DRG 750 ==
LOC: ED 03:07 → BSU 14:19
PROVIDERS: ADMIT Psychiatry & Neurology Psychiatry; ATTEND Psychiatry & Neurology Psychiatry
DX: F20.9 Schizophrenia, unspecified (principal); F10.10 Alcohol abuse, uncomplicated; Y90.5 Blood alcohol level of 100-119 mg/100 ml; F12.10 Cannabis abuse, uncomplicated; Z81.8 Family history of other mental and behavioral disorders; Z79.899 Other long term (current) drug therapy
CPT/HCPCS: 36415; 70450; 80053; 80307; 80320; 80329; 81003; 81015; 84443; 85025; 86703; 99222; 99231; 99232; 99238; 99406; A9270-GY; G0480; J1200; J1630; J2060

== ENCOUNTER 2016-08-30 17:13 | Emergency (ER) | payer OTHER ==
[2016-08-30] MEDS ORDERED: Haloperidol INJ IV/IM* 5 MG/ML AMP IM ONE (17:36)
[2016-08-30] MEDS ORDERED: diPHENhydraMINE IV* 50 MG/ML 1 ml VIAL (BENADRYL) IM ONE (17:36)
[2016-08-30] MEDS ORDERED: LORazepam INJ* 2 MG/ML 1 ML VIAL IV ONE (17:36)
[2016-08-30] MEDS ORDERED: LORazepam INJ* 2 MG/ML 1 ML VIAL IM ONE (17:55)
[2016-08-30 18:58] LABS: Hematocrit 45 % (42-52); Hemoglobin 15.2 g/dl (14.0-18.0); Mean Corpuscular HGB Conc 34 g/dl (31-36); Mean Corpuscular Hemoglobin 30 pg (27-31); Mean Corpuscular Volume 90 fL (80-94); Mean Platelet Volume 8 um3 (7.4-10.4); Red Blood Count 5.02 10^6/ul (4.0-5.4); Red Cell Distribution Width 13 % (10.5-15); White Blood Count 9.3 10^3/ul (3.5-10.8)
--- NOTE | 2016-08-30 19:21 | ED ---
Daina Oseguera Seung-Jae, scribed for Trevon Mathur MD on 08/30/16 at 1734 . Psychiatric Complaint - HPI Summary HPI Summary: Pt is uncooperative and is therefore a level 5 caveat. This 21 y/o male presents to ED as [address] custody. Pt is noted combative toward law enforcements and ED staffs. He is currently refusing to provide history for this visit. Negative hallucination. Negative SI/HI. Four point restraint has been ordered. Pt is currently under observation and monitor. Prior medical records indicates previous ED visits involving EtOH intoxication and MHE. - History Of Current Complaint Time Seen by Provider: 08/30/16 17:21 Hx Obtained From: Medical Records, Other: - [facility] Hx From Patient Unobtainable Due To: Other - Pt uncooperative Onset/Duration: Sudden Onset Timing: Constant Associated Signs And Symptoms: Positive: Hostile Related History: Positive For: Prior Psychiatric Issues Has Suicidal: Denies: Thoughts Has Homicidal: Denies: Thoughts - Allergies/Home Medications Allergies/Adverse Reactions: Allergies Allergy/AdvReac Type Severity Reaction Status Date / Time No Known Allergies Allergy Verified 08/30/16 17:32 PMH/Surg Hx/FS Hx/Imm Hx Endocrine/Hematology History: Denies: Hx Diabetes, Hx Thyroid Disease Cardiovascular History: Denies: Hx Hypertension Respiratory History: Denies: Hx Asthma, Hx Chronic Obstructive Pulmonary Disease (COPD) GI History: Denies: Hx Ulcer Musculoskeletal History: Denies: Hx Rheumatoid Arthritis, Hx Osteoporosis Sensory History: Denies: Hx Cataracts, Hx Contacts or Glasses, Hx Eye Injury, Hx Eye Prosthesis, Hx Glaucoma, Hx Legally Blind, Hx Macular Degeneration, Hx Vision Problem, Hx Deafness, Hx Hearing Aid, Hx Hearing Problem, Other Sensory Impairments Opthamlomology History: Denies: Hx Cataracts, Hx Contacts or Glasses, Hx Eye Injury, Hx Eye Prosthesis, Hx Glaucoma, Hx Legally Blind, Hx Macular Degeneration, Hx Vision Problem, Other Sensory Impairments Psychiatric History: Reports: Hx Anxiety, Hx Depression, Hx Inpatient Treatment , Hx Community Mental Health Tx Denies: Hx Eating Disorder, Hx of Violent Episodes Against Others, Hx Substance Abuse - Surgical History Surgery Procedure, Year, and Place: bilateral foot surgery while in high school Infectious Disease History: Denies: Hx Clostridium Difficile, Hx Hepatitis, Hx Human Immunodeficiency Virus (HIV), Hx of Known/Suspected MRSA, Hx Shingles, Hx Tuberculosis, History Other Infectious Disease - Family History Known Family History: Positive: Diabetes, Other - Positive for bipolar and depression - Social History Alcohol Use: says has a couple of drinks ETOH every few days Hx Substance Use: No Substance Use Type: Reports: None, Marijuana Substance Use Comment - Amount & Last Used: PATIENT UNABLE TO SPECIFY THE QUANTITY OF MARIJUANA USED. Hx Tobacco Use: Yes Smoking Status (MU): Current Some Day Smoker Type: Cigars Have You Smoked in the Last Year: Yes - Patient has only smoked cigarette(2 cigarettes) within the last 30 dys. Review of Systems - ROS Summary Review of Systems Summary: LEVEL 5 CAVEAT secondary to pt being uncooperative Negative: Fever Positive: Other - combative and verbally abusive to ED staffs All Other Systems Reviewed And Are Negative: No Physical Exam - Summary Physical Exam Summary: The patient is well-nourished in no acute distress and in no acute pain. The skin is warm and dry and skin color reflects adequate perfusion. HEENT: The head is normocephalic and atraumatic. The pupils are equal and reactive. The conjunctivae are clear and without drainage. Neck is supple with full range of motion and non-tender. There are no carotid bruits. There is no neck vein distension. Respiratory: Effort is normal. Musculoskeletal: There is no back pain noted. Extremities are non-tender with full range of motion. There is good capillary refill. There is no peripheral edema or calf tenderness elicited. No trauma to all four extremities. Neurological: Patient is alert and oriented to person, place and time. The patient has symmetrical motor strength in all four extremities. Cranial nerves are grossly intact. Deep tendon reflexes are symmetrical and equal in all four extremities. Psychiatric: The patient has flight of ideas. Positive paranoia. Combative towards ED staffs. Triage Information Reviewed: Yes Vital Signs On Initial Exam: Initial Vitals Resp 18 08/30/16 17:33 Vital Signs Reviewed: Yes Diagnostics - Vital Signs Vital Signs Temp Pulse Resp BP Pulse Ox 08/30/16 18:03 98.3 F 105 16 130/89 97 08/30/16 17:36 0 F 0 0 0/0 0 08/30/16 17:33 18 - Laboratory Lab Results: Lab Results 08/30/16 Range/Units 18:42 WBC 9.3 (3.5-10.8) 10^3/ul RBC 5.02 (4.0-5.4) 10^6/ul Hgb 15.2 (14.0-18.0) g/dl Hct 45 (42-52) % MCV 90 (80-94) fL MCH 30 (27-31) pg MCHC 34 (31-36) g/dl RDW 13 (10.5-15) % Plt Count 252 (150-450) 10^3/ul MPV 8 (7.4-10.4) um3 Neut % (Auto) 72.8 (38-83) % Lymph % (Auto) 16.9 L (25-47) % [place] % (Auto) 8.5 (1-9) % Eos % (Auto) 0.9 (0-6) % Baso % (Auto) 0.9 (0-2) % Absolute Neuts (auto) 6.8 (1.5-7.7) 10^3/ul Absolute Lymphs (auto) 1.6 (1.0-4.8) 10^3/ul Absolute Monos (auto) 0.8 (0-0.8) 10^3/ul Absolute Eos (auto) 0.1 (0-0.6) 10^3/ul Absolute Basos (auto) 0.1 (0-0.2) 10^3/ul Absolute Nucleated RBC 0.01 10^3/ul Nucleated RBC % 0.1 Result Diagrams: 08/30/16 18:42 Lab Statement: Any lab studies that have been ordered have been reviewed, and results considered in the medical decision making process. Course/Dx - Differential Dx/Clinical Impression Differential Diagnosis/HQI/PQRI: Positive: Acute Psychosis, Schizophrenia, Other - psychosis Provider Diagnosis: Acute psychosis Discharge - Discharge Plan Condition: Stable Disposition: OTHER Discharge Disposition Comment: Pending [facility]HE. Referrals: Terry Harrington MD [Primary Care Provider] - The documentation as recorded by the Daina kothari Seung-Jae accurately reflects the service I personally performed and the decisions made by Kevan betancur Drew, MD.
[2016-08-30 19:37] LABS: TSH (Thyroid Stimulating Horm) 3.61 mcIU/mL (0.34-5.60)
[2016-08-30 19:43] LABS: ALT 30 U/L (7-52); AST 28 U/L (13-39); Albumin 4.1 g/dL (3.2-5.2); Alkaline Phosphatase 45 U/L (34-104); Anion Gap 5 mmol/L (2-11); BUN/Creatinine Ratio 11.4 (8-20); Blood Urea Nitrogen 13 mg/dL (6-24); CO2 Carbon Dioxide 25 mmol/L (22-32); Calcium 9.3 mg/dL (8.6-10.3); Chloride 106 mmol/L (101-111); EGFR African American 102.4 (>60); EGFR Non-African American 79.6 (>60); Globulin 2.9 g/dL (2-4); Glucose 119 mg/dL (70-100); Potassium 3.7 mmol/L (3.5-5.0); Sodium 136 mmol/L (133-145)
[2016-08-30 19:49] LABS: Acetaminophen < 15 mcg/mL; Alcohol < 10 mg/dL (<10); Salicylate < 2.50 mg/dL (<30)
[2016-08-30 21:09] LABS: Urine Bilirubin Negative (Negative); Urine Glucose 1+(50 mg/dL) (Negative); Urine Nitrite Negative (Negative)
[2016-08-30 21:19] LABS: Benzodiazepine Urine Screen None Detected (None Detect)
[2016-08-30 22:17] VITALS: BP 140/79
--- NOTE | 2016-08-30 22:24 | ED ---
Progress - Progress Note Progress Note: pt signed out to me, had an eval by the mental health onboarding specialist and was discharged home - Consult/PCP Time Called: 08:52 Course/Dx - Diagnoses Provider Diagnoses: Acute psychosis
== END 2016-08-30 22:17 ==
LOC: ED 17:13
DX: F23 Brief psychotic disorder (principal)
CPT/HCPCS: 36415; 80053; 80307; 80320; 80329; 81003; 84443; 85025; 96374; 96375; 99285; G0480; J1200; J1630; J2060